=== PATIENT | male | born 1990 | race Two or more races ===

== ENCOUNTER 2021-02-01 10:37 | Emergency (ER) | payer OTHER, SELFPAY ==
[2021-02-01 11:32] VITALS: BP 140/70; PULSE 85; RESP 16; TEMP 37.1; O2SAT 99; BMI 19.8
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
[2021-02-01] MEDS: Ibuprofen 600 MG TABLET PO (13:32)
== END 2021-02-01 13:37 | disposition home or self-care (01) ==
PROVIDERS: Emergency Provider Emergency Medicine
DX: T14.90XA Injury, unspecified, initial encounter (principal); Y09 Assault by unspecified means; Y93.9 Activity, unspecified; Y92.9 Unspecified place or not applicable; Y99.9 Unspecified external cause status
CPT/HCPCS: 99283

== ENCOUNTER 2023-06-04 04:47 | Emergency (ER) | payer MEDICAID, SELFPAY ==
[2023-06-04 05:55] VITALS: BP 131/83; PULSE 81; RESP 16; TEMP 37.3; O2SAT 99; BMI 20.3
[2023-06-04 06:19] LABS: MANUAL DIFF FLAG NO
[2023-06-04 06:33] LABS: Basophils Percent Auto 0.1 % (0-2); Eosinophils Percent Auto 0.2 % (0-4); Hematocrit 43.9 % (42.0-52.0); Hemoglobin 14.1 g/dl (14.0-18.0); Imm Gran Abs Auto 0.05 X10*3/uL (0.00-0.03); Imm Gran Pct Auto 0.4 % (0.0-0.4); Lymphocytes Absolute Auto 1.3 X10*3/uL (1.2-4.9); Lymphocytes Percent Auto 10.4 % (20-40); Mean Corpuscular HGB Conc 32.1 g/dl (31.0-36.0); Mean Corpuscular Hemoglobin 25.5 pg (27.0-33.0); Mean Corpuscular Volume 79.5 fL (80.0-98.0); Mean Platelet Volume 9.2 fL (9.4-12.4); Monocytes Absolute Auto 0.9 X10*3/uL (0.1-1.2); Monocytes Percent Auto 7.8 % (2-11); Neutrophils Absolute Auto 9.8 x10*3/uL (2.0-8.3); Neutrophils Percent Auto 81.1 % (45-73); Platelet Count 297 X10*3/uL (160-400); Red Blood Count 5.52 X10*6/uL (4.60-5.80); Red Cell Distribution Width 13.8 % (11.0-16.0)
[2023-06-04 06:39] LABS: Alanine Aminotransferase 12 U/L (0-40); Albumin Level 4.2 g/dL (3.5-5.0); Alkaline Phosphatase 81 U/L (39-117); Anion Gap 15 (12-20); Aspartate Amino Transferase 16 U/L (5-37); Bilirubin Total 0.6 mg/dL (0.0-1.0); Blood Urea Nitrogen 7 mg/dL (9-16); Calcium 9.3 mg/dL (8.4-10.2); Carbon Dioxide 24 mmol/L (22-29); Chloride 103 mmol/L (96-108); Creatinine Clr Calc Pharmacy 104.5; Estimated Glomerular Filt Rate > 60; Glucose Random 114 mg/dL (60-115); Lipase 15 U/L (8-78); Sodium 138 mmol/L (135-145); Total Protein 7.5 g/dL (6.5-8.0)
--- NOTE | 2023-06-04 07:04 | ED_ITS ---
HPI - Abdominal Pain General Chief Complaint: Abdominal Pain Stated Complaint: food poisoning Time Seen by Provider: 06/04/23 07:04 Source: patient Mode of arrival: ambulatory Limitations: no limitations History of Present Illness HPI narrative: 32 yo male with no PMH or surgery here with c/o diffuse abdominal pain and vomiting starting yesterday after eating poorly cooked ground beef at work. He notes it started with generalized abdominal pain n/v. One of his co-workers is also ill. MD elicited complaint: abdominal pain Onset (ago): day(s) (yesterday ) Pain Consistency: constant Location: diffuse Severity: severe Quality: cramping Radiation: none Migration to: no migration Exacerbating factors: eating Relieving factors: nothing Context: possible food poisoning and sick contacts Associated symptoms: nausea and vomiting Related Data Previous Rx's Medication Instructions Recorded cyclobenzaprine 5 mg tablet 5 mg PO BEDTIME PRN muscle spasm 02/01/21 #7 tabs ibuprofen 600 mg tablet 600 mg PO Q8H PRN pain #20 tabs 02/01/21 famotidine 20 mg tablet (Pepcid) 20 mg PO DAILY PRN abdominal 06/04/23 discomfort #30 tabs ondansetron 4 mg disintegrating 4 mg PO Q8H PRN nausea and 06/04/23 tablet vomiting #20 tabs Allergies Allergy/AdvReac Type Severity Reaction Status Date / Time No Known Allergies Allergy Unverified 06/04/23 05:54 [No Known Allergies*] Review of Systems Review of Systems Constitutional : No Weight loss, No Fever, No Chills ENT/Mouth : No sore throat, No Rhinorrhea Eyes: No Swelling, No Redness Cardiovascular : No Chest Pain, No SOB, No Edema Respiratory : No Cough, No Sputum, No Wheezing Gastrointestinal : Positive Nausea, Positive Vomiting, no Diarrhea, positive abdominal Pain, No Hematochezia, No Melena Genitourinary : No Dysuria, No Urinary Frequency, No Hematuria, No Urgency Musculoskeletal : No joint pain, No Myalgias, No Joint Swelling Skin : No Skin Lesions, No rash Neuro : No Weakness, No Numbness, No Dizziness, No Headache Psych : No Anxiety/Panic, No Depression All other systems reviewed and are negative. [facility] Past Medical History Attestation statement: The following information was validated with the patient. Source: old records reviewed Medical History No known health problems Social History Social History (Updated 06/04/23 @ 07:21 by Sonia Sanchez DO) Patient Tobacco Use Status: Never used Tobacco Smoked in Last 30 Days: No Advance Directives: No Advance Directives Information Provided: No Physical Exam ED Vital Signs: Vital Signs - 24 hr 06/04/23 05:55 06/04/23 07:28 Temperature 99.1 F 98.4 F Pulse Rate 81 52 Respiratory Rate 16 14 Blood Pressure 131/83 135/73 Pulse Oximetry 99 100 Oxygen Delivery Method Room Air Room Air BMI result Body Mass Index 20.3 Appearance: Alert. Oriented X3. No acute distress. Eyes: Pupils equal, round and reactive to light. ENT: Pharynx mildly dry MM Neck: Normal inspection. Neck supple. CVS: Normal heart rate and rhythm. Pulses normal. Respiratory: No respiratory distress. Breath sounds normal. Abdomen: Soft and mild diffuse ttp no rebound Skin: Skin warm and dry. Normal skin color. Normal skin turgor. Extremities: No lower extremity edema. No calf ttp Neuro: Oriented X 3. No motor deficit. No sensory deficit. Medical Decision Making Medical Decision Making [facility] Narrative: 32 yo male otherwise healthy here with c/o abrupt onset generalized pain n/v after eating beef at work - co worker is also ill has no localized RLQ or RUQ pain given onset and co worker also ill seems suspicious for food toxicity or viral syndrome, labs, IVF and supportive medications ordered Differential Diagnosis Differential Diagnoses: The differential diagnosis associated with the presentation includes food toxicity, viral syndrome, gastritis Admission/Observation Consideration of admission/observation: Escalation of care including admission/observation considered labs reassuring, able to tolerate PO stable for DC Lab Data [facility] Lab Attestation statement: I reviewed the patient's lab results. 06/04/23 06:09 06/04/23 06:09 Labs: Lab Results 06/04/23 06/04/23 Range/Units 06:09 07:29 WBC 12.0 H (4.8-10.8) X10*3/uL RBC 5.52 (4.60-5.80) X10*6/uL Hgb 14.1 (14.0-18.0) g/dl Hct 43.9 (42.0-52.0) % MCV 79.5 L (80.0-98.0) fL MCH 25.5 L (27.0-33.0) pg MCHC 32.1 (31.0-36.0) g/dl RDW 13.8 (11.0-16.0) % Plt Count 297 (160-400) X10*3/uL MPV 9.2 L (9.4-12.4) fL Immature Gran % (Auto) 0.4 (0.0-0.4) % Neut % (Auto) 81.1 H (45-73) % Lymph % (Auto) 10.4 L (20-40) % [place] % (Auto) 7.8 (2-11) % Eos % (Auto) 0.2 (0-4) % Baso % (Auto) 0.1 (0-2) % Lymph # (Auto) 1.3 (1.2-4.9) X10*3/uL [place] # (Auto) 0.9 (0.1-1.2) X10*3/uL Eos # (Auto) 0.0 (0.0-0.4) X10*3/uL Baso # (Auto) 0.0 (0.0-0.2) X10*3/uL Abs Immat Gran (auto) 0.05 H (0.00-0.03) X10*3/uL Absolute Neuts (auto) 9.8 H (2.0-8.3) x10*3/uL Absolute Nucleated RBC 0.000 (0.0-0.012) X10*3/uL Nucleated RBC % (auto) 0.0 (0.0-0.2) /100WBC Sodium 138 (135-145) mmol/L Potassium 4.0 (3.3-5.1) mmol/L Chloride 103 (96-108) mmol/L Carbon Dioxide 24 (22-29) mmol/L Anion Gap 15 (12-20) BUN 7 L (9-16) mg/dL Creatinine 0.88 (0.5-1.4) mg/dL Estim Creat Clear Calc 104.5 Estimated GFR > 60 Random Glucose 114 (60-115) mg/dL Calcium 9.3 (8.4-10.2) mg/dL Total Bilirubin 0.6 (0.0-1.0) mg/dL AST 16 (5-37) U/L ALT 12 (0-40) U/L Alkaline Phosphatase 81 (39-117) U/L Total Protein 7.5 (6.5-8.0) g/dL Albumin 4.2 (3.5-5.0) g/dL Lipase 15 (8-78) U/L Urine Color Yellow Urine Appearance Clear Urine pH 8.0 (5.0-9.0) Ur Specific [place] 1.015 (1.005-1.025) Urine Protein Negative (Neg-Trace) mg/dL Urine Glucose (UA) Negative (Negative) mg/dL Urine Ketones 40 (Negative) mg/dL Urine Blood Negative (Negative) Urine Nitrite Negative (Negative) Ur Leukocyte Esterase Negative (Negative) External Record Review External record reviewed: Inpatient record Prescription Management I considered prescription management with: Other Medications Administered Discontinued Medications Generic Name Dose Route Start Last Admin Trade Name Freq PRN Reason Stop Dose Admin Famotidine 20 mg 06/04/23 07:15 06/04/23 07:39 Famotidine/Pf 20 Mg/2 Ml Vial IVPUSH 06/04/23 07:16 20 mg ONCE ONE Administration Sodium Chloride 1,000 mls @ 999 mls/hr 06/04/23 07:15 06/04/23 07:39 Ns IV 06/04/23 08:15 999 mls/hr .Q1H1M MABLE Administration Ketorolac Tromethamine 15 mg 06/04/23 07:15 06/04/23 07:39 Ketorolac Tromethamine 15 Mg/Ml Vial IVPUSH 06/04/23 07:16 15 mg ONCE ONE Administration Ondansetron HCl 4 mg 06/04/23 07:15 06/04/23 07:39 Ondansetron Hcl 4 Mg/2 Ml Vial IVPUSH 06/04/23 07:16 4 mg ONCE ONE Administration Discharge Plan Discharge Clinical Impression: Abdominal pain Qualifiers: Abdominal location: generalized Qualified Code(s): R10.84 - Generalized abdominal pain Vomiting Qualifiers: Vomiting type: unspecified Nausea presence: with nausea Qualified Code(s): R 11.2 - Nausea with vomiting, unspecified Patient Disposition: Home, Self-Care Instructions: Acute Nausea and Vomiting (ED), Abdominal Pain (ED) Additional Instructions: stay hydrated, eat a bland diet and advance slowly over 2 days. return for fevers, worsening pain, inability to eat or drink. bloody stools or any other concerns. Prescriptions: New famotidine [Pepcid] 20 mg tablet 20 mg PO DAILY PRN (Reason: abdominal discomfort) Qty: 30 0RF ondansetron 4 mg tablet,disintegrating 4 mg PO Q8H PRN (Reason: nausea and vomiting) Qty: 20 0RF No Action ibuprofen 600 mg tablet 600 mg PO Q8H PRN (Reason: pain) Qty: 20 0RF cyclobenzaprine 5 mg tablet 5 mg PO BEDTIME PRN (Reason: muscle spasm) Qty: 7 0RF Stand Alone Forms: Work/School Release
[2023-06-04 07:28] VITALS: BP 135/73; PULSE 52; RESP 14; TEMP 36.9; O2SAT 100
[2023-06-04] MEDS: Ketorolac Tromethamine 15 MG/ML VIAL IVPUSH (07:39)
[2023-06-04] MEDS: Famotidine/PF 20 MG/2 ML VIAL IVPUSH (07:39)
[2023-06-04] MEDS: 0.9 % Sodium Chloride 1,000 ML 999 ML IV ×2 (07:39→09:13)
[2023-06-04] MEDS: ondansetron HCL 4 MG/2 ML VIAL IVPUSH (07:39)
[2023-06-04 08:05] LABS: Appearance Urine Clear; Color Urine Yellow; Glucose Urine UA Negative (Negative); Leukocyte Esterase Urine Negative (Negative); Nitrite Urine Negative (Negative); Specific Gravity - Urine 1.015 (1.005-1.025); Urine Blood Negative (Negative); Urine Ketones 40 mg/dL (Negative); Urine Protein Negative (Neg-Trace)
[2023-06-04 09:46] VITALS: BP 118/68; PULSE 48; RESP 15; TEMP 36.7; O2SAT 100
== END 2023-06-04 10:05 | disposition home or self-care (01) ==
PROVIDERS: Emergency Provider Emergency Medicine
DX: R10.84 Generalized abdominal pain (principal); R11.2 Nausea with vomiting, unspecified
CPT/HCPCS: 36415; 80053; 81003; 83690; 85025; 96361; 96374; 96375; 99284; 99285; J1885; J2405

== ENCOUNTER 2023-12-07 13:16 | Emergency (ER) | payer MEDICAID, SELFPAY ==
[2023-12-07 13:21] VITALS: BP 125/75; PULSE 95; RESP 16; TEMP 36.9; O2SAT 98; BMI 20.2
--- NOTE | 2023-12-07 13:25 | ED_ITS ---
HPI - General Adult General Chief complaint: General Medical Stated complaint: Rash, itchy scalp Time Seen by Provider: 12/07/23 13:24 Source: patient Mode of arrival: ambulatory Limitations: no limitations History of Present Illness ED Provider: hossein MARTINEZ narrative: Patient is a 33-year-old male presenting to the emergency department with complaint of rash to scalp and neck for the past 2 weeks. Complains of flaking scalp. Describes as pruritic. Has tried OTC dandruff shampoo without relief. complaint: rash Onset (ago): week(s) Location: head and neck Associated symptoms: denies other symptoms Related Data Previous Rx's ?Medication ?Instructions ?Recorded cyclobenzaprine 5 mg tablet 5 mg PO BEDTIME PRN muscle spasm 02/01/21 #7 tabs ibuprofen 600 mg tablet 600 mg PO Q8H PRN pain #20 tabs 02/01/21 famotidine 20 mg tablet (Pepcid) 20 mg PO DAILY PRN abdominal 06/04/23 discomfort #30 tabs ondansetron 4 mg disintegrating 4 mg PO Q8H PRN nausea and 06/04/23 tablet vomiting #20 tabs ketoconazole 2 % shampoo 1 appl topical 3XW #120 mL 12/07/23 ketoconazole 2 % topical cream 1 appl topical BID #30 grams 12/07/23 Allergies Allergy/AdvReac Type Severity Reaction Status Date / Time No Known Allergies Allergy Verified 12/07/23 13:24 [No Known Allergies*] Review of Systems 2 Review of Systems: as per hpi Yes all other systems are reviewed and are negative Constitutional: Constitutional: Reports as per HPI [facility] Past Medical History Medical History No known health problems Social History Social History (Updated 06/04/23 @ 07:21 by Sonia Sanchez DO) Patient Tobacco Use Status: Never used Tobacco Advance Directives: No Advance Directives Information Provided: Yes Do you have a plan to hurt others: No Plan Physical Exam ED Vital Signs: Vital Signs - 24 hr 12/07/23 13:21 12/07/23 13:40 Temperature 98.4 F 98.4 F Pulse Rate 95 95 Respiratory Rate 16 16 Blood Pressure 125/75 125/75 Pulse Oximetry 98 98 Oxygen Delivery Method Room Air Room Air BMI result Body Mass Index 20.2 Vital signs have been reviewed and appear to be correct. Blood pressure normal. Heart rate normal. Respiratory rate normal. Temperature normal. Oxygen saturation normal. Const General: cooperative, healthy appearing and no acute distress Orientation/consciousness: oriented to person, oriented to place, oriented to time and patient oriented x3 Limitations: no limitations [facility] Head: Yes normocephalic and Yes atraumatic Ears: external ears normal General nose exam: Normal external nose present Face and sinus: Yes face symmetric Mouth: Normal oral and palatal mucosa present, lip normal, tongue normal, oropharynx normal and moist mucous membranes Throat: Yes uvula midline Eyes Pupils: Equal, round and reactive pupils present Neck Neck: Yes normal visual inspection and Yes supple Resp Effort & Inspection: normal respiratory effort and able to speak in complete sentences Auscultation: clear to auscultation bilaterally Cardio Rate: regular rate Rhythm: regular rhythm Heart sounds: S1 normal heart sound present and S2 normal heart sound present GI Palpation (GI): Soft to palpation and nontender Auscultation: normoactive bowel sounds General: Yes no CVA tenderness Back/Spine/Pelvis Back: no CVA tenderness Skin Other: scaling and flaking noted to scalp, no erythema or drainage General skin exam: elasticity normal and turgor normal Full body images: 2 1. hyperpigmented oval plaques with central clearing and raised borders Neuro General: oriented to person, oriented to place, oriented to time, patient oriented x3, moves all extremities, no focal motor deficits and CN's II-XI intact bilaterally Cranial nerves: Yes Equal, round and reactive pupils present Cognition (Neuro): normal cognition Extrem General: Yes full ROM, Yes no pedal edema and Yes no calf tenderness Psych Mental Status: mental status grossly normal Affect: normal affect Thought process: Normal thought process present Medical Decision Making Medical Decision Making MDM Narrative: Patient is a 33-year-old male presenting to the emergency department with complaint of rash to scalp and neck for the past 2 weeks. On exam patient is awake, A+Ox3, VS WNL, afebrile, normal neurological exam without focal deficits, physical exam findings as above. Given reported symptoms and physical exam findings, initial differential includes tinea capitis, tinea corporis, atopic dermatitis. Do not suspect TEN/SJS, DRESS, TTP/DIC, necrotizing fasciitis, meningococcemia, SSSS, TSS, anaphylaxis. Will treat with ketoconazole shampoo and cream, advised patient to thoroughly wash and dry all clothing, towel, and bedding in hot water with soap, not to reuse towels after showering. Return precautions discussed. Will refer to dermatology for ongoing symptoms. Patient verbalized understanding of and agreement with plan. Differential Diagnosis Differential Diagnoses: The differential diagnosis associated with the presentation includes As per [facility] External Record Review External record reviewed: Inpatient record, Office record and Outpatient record Prescription Management I considered prescription management with: Other Discharge Plan Discharge Clinical Impression: Tinea corporis, Tinea capitis Patient Disposition: Home, Self-Care Instructions: Tinea Corporis (ED), Tinea Capitis (ED) Additional Instructions: You were evaluated in the emergency department today for a rash. Your evaluation did not reveal evidence of conditions requiring emergent medical treatment. You are being prescribed a shampoo for your scalp and a cream for your neck. We also recommend that you take a daily antihistamine such as loratadine (Claritin) or cetirizine (Zyrtec). Follow up with your primary care provider this week. If your symptoms do not improve, follow up with a bench assembler operator. Return to the emergency department if you develop difficulty breathing or shortness of breath, swelling to lips, tongue, fever, rash inside your mouth or to your palms/soles or any other concerning symptoms. Prescriptions: New ketoconazole 2 % shampoo 1 appl topical 3XW Qty: 120 0RF ketoconazole 2 % cream 1 appl topical BID Qty: 30 0RF Rx Instructions: Use until symptoms resolve No Action ibuprofen 600 mg tablet 600 mg PO Q8H PRN (Reason: pain) Qty: 20 0RF cyclobenzaprine 5 mg tablet 5 mg PO BEDTIME PRN (Reason: muscle spasm) Qty: 7 0RF famotidine [Pepcid] 20 mg tablet 20 mg PO DAILY PRN (Reason: abdominal discomfort) Qty: 30 0RF ondansetron 4 mg tablet,disintegrating 4 mg PO Q8H PRN (Reason: nausea and vomiting) Qty: 20 0RF Referrals: [facility] [Provider Group] Interventions: ED Discharge Assessment Last Done: 12/07/23 13:40 Discharge Date/Time: 12/07/23 13:40 Print Language: German
[2023-12-07 13:40] VITALS: BP 125/75; PULSE 95; RESP 16; TEMP 36.9; O2SAT 98
== END 2023-12-07 13:40 | disposition home or self-care (01) ==
PROVIDERS: Emergency Provider Emergency Medicine
DX: B35.4 Tinea corporis (principal); B35.0 Tinea barbae and tinea capitis
CPT/HCPCS: 99282